=== PATIENT | female | born 1960 | race African-American/Black ===

== ENCOUNTER 2022-06-28 02:07 | Inpatient (IN) | payer MEDICAID, MEDICARE ==
[~2022-06-28] VITALS: Ht 162.6 cm; Wt 101.7 kg
[~2022-06-28 02:07] MED LIST: AMLO10TA80 MT; ASPI-1497 MT; CARV6.2548 MT; DYR5 PO; ERGO2000 PO; ERTU15TA PO; FERR325T6 MT; FLUT1BLS3 INH; FURO20TA4 MT; GABA-529 MT; INSU100I24 SQ; LEVO25TA7 MT; LOSA25TA26 MT; PRED10TA MT; SILD20TA MT; [UNRECOGNIZED DRUG - OTHER]
[2022-06-28] MEDS ORDERED: IPRATROPIUM BROMIDE (0.02%) 0.5MG/2.5ML NEB HHN STA (02:17)
[2022-06-28] MEDS ORDERED: ALBUTEROL (0.083%) 2.5MG/3ML NEB HHN STA (02:17)
[2022-06-28] MEDS ORDERED: FUROSEMIDE 40MG/4ML VIAL IV ONE (02:30)
[2022-06-28 03:13] LABS: HEMATOCRIT. 41.9 % (36.0-48.0); HEMOGLOBIN. 13.5 g/dL (12.0-16.0); MEAN CORPUSCULAR HEMOGLOBIN 27.9 pg (28.0-32.0); MEAN CORPUSCULAR VOLUME 87.1 fL (81.0-99.0); MEAN PLATELET VOLUME 8.8 fl (7.4-10.4); PLATELET 291 x1000/uL (130-400); RED BLOOD CELL COUNT 4.82 mill/uL (4.2-5.4); RED CELL DISTRIBUTION WIDTH 17.6 % (11.6-14.6)
[2022-06-28 03:21] LABS: CHLORIDE 103 mEq/L (98-107)
[2022-06-28 04:01] LABS: PLATELET ESTIMATE NORMAL
[2022-06-28 11:47] LABS: BG BASE EXCESS 6.5 mmol/L (-2.0-2.0); BG CARBOXYHEMOGLOBIN 0.8 % (0.5-1.5); BG DEOXYHEMOGLOBIN 5.5 % (0.0-5.0); BG FRACTION INSPIRED OXYGEN 40; BG HCO3 ACT 33.1 mmol/L (22.0-26.0); BG METHEMOGLOBIN 0.2 % (0.0-1.5); BG OXYGEN SATURATION 94.4 % (92.0-98.5); BG OXYHEMOGLOBIN 93.5 % (94.0-97.0); BG PCO2 56.4 mmHg (35.0-45.0); BG PH 7.387 (7.350-7.450); BG PO2 78.3 mmHg (75.0-100.0); BG TOTAL HEMOGLOBIN 13.7 g/dL (12.0-18.0); BG VENT MODE HIGH FLOW
[2022-06-28] MEDS ORDERED: ONDANSETRON HCL 4MG/2ML INJ IV PRN (14:15)
[2022-06-28] MEDS ORDERED: DEXTROSE 50% WATER 50ML SYRINGE IV PRN (14:15)
[2022-06-28] MEDS ORDERED: CLONIDINE 0.1MG TABLET PO PRN (14:15)
[2022-06-28] MEDS ORDERED: ACETAMINOPHEN 325MG TABLET PO PRN (14:15)
[2022-06-28] MEDS ORDERED: LEVOFLOXACIN 500MG PREMIX 100 ML IV SCH (14:30)
[2022-06-28] MEDS: FUROSEMIDE 40MG/4ML VIAL IVP SCH (14:41)
[2022-06-28] MEDS: BLOOD SUGAR DIAGNOSTIC STRIP TEST SCH ×2 (17:29→21:00)
[2022-06-28] MEDS: SILDENAFIL CITRATE 20MG TABLET PO SCH (17:54)
[2022-06-28] MEDS: METHYLPREDNISOLONE SOD SUCC 40 MG/ML VIAL IV SCH ×2 (17:55→22:00)
[2022-06-28] MEDS: GABAPENTIN 100MG CAPSULE PO SCH (17:55)
[2022-06-28] MEDS: INSULIN LISPRO 100 UNITS/ML SUBCUT SCH (18:10)
[2022-06-28] MEDS: CARVEDILOL 6.25 MG TABLET PO SCH (21:00)
[2022-06-28] MEDS: INSULIN GLARGINE 100 UNITS/ML SUBCUT SCH (22:00)
[2022-06-28 23:20] LABS: CREATINE KINASE 78 IU/L (26-192); CREATINE KINASE MB FRACTION < 1.0 ng/mL (0.5-3.6)
[2022-06-29 01:49] VITALS: BP 130/94
[2022-06-29 02:00] VITALS: BP 130/94
[2022-06-29 04:00] VITALS: BP 144/88
[2022-06-29] MEDS: METHYLPREDNISOLONE SOD SUCC 40 MG/ML VIAL IV SCH ×3 (05:00→21:23)
[2022-06-29 06:00] VITALS: BP 121/81
[2022-06-29 06:16] LABS: HEMATOCRIT. 41.7 % (36.0-48.0); HEMOGLOBIN. 13.3 g/dL (12.0-16.0); MEAN CORPUSCULAR VOLUME 87.3 fL (81.0-99.0); MEAN PLATELET VOLUME 8.9 fl (7.4-10.4); PLATELET 287 x1000/uL (130-400); RED BLOOD CELL COUNT 4.77 mill/uL (4.2-5.4)
[2022-06-29 06:50] LABS: CHLORIDE 100 mEq/L (98-107)
[2022-06-29 07:01] LABS: CREATINE KINASE 76 IU/L (26-192); CREATINE KINASE MB FRACTION 1.1 ng/mL (0.5-3.6)
[2022-06-29] MEDS: BLOOD SUGAR DIAGNOSTIC STRIP TEST SCH ×4 (08:11→21:00)
[2022-06-29] MEDS: GABAPENTIN 100MG CAPSULE PO SCH ×3 (08:25→17:46)
[2022-06-29] MEDS: AMLODIPINE 10MG TABLET PO SCH (08:25)
[2022-06-29] MEDS: FUROSEMIDE 40MG/4ML VIAL IVP SCH (08:26)
[2022-06-29] MEDS: LEVOTHYROXINE SODIUM 25MCG TABLET PO SCH (08:26)
[2022-06-29] MEDS: ASPIRIN 81MG EC TABLET PO SCH (08:26)
[2022-06-29] MEDS: SILDENAFIL CITRATE 20MG TABLET PO SCH ×3 (08:26→17:46)
[2022-06-29] MEDS: LOSARTAN POTASSIUM 25 MG TABLET PO SCH (08:26)
[2022-06-29] MEDS: INSULIN LISPRO 100 UNITS/ML SUBCUT SCH ×4 (08:29→21:24)
[2022-06-29] MEDS: APIXABAN 5 MG TABLET PO SCH ×2 (09:00→17:46)
[2022-06-29] MEDS ORDERED: TRIAMTERENE 50MG CAPSULE PO SCH (09:00)
[2022-06-29 09:31] LABS: BG BASE EXCESS 6.9 mmol/L (-2.0-2.0); BG CARBOXYHEMOGLOBIN 0.9 % (0.5-1.5); BG DEOXYHEMOGLOBIN 14.3 % (0.0-5.0); BG FRACTION INSPIRED OXYGEN 44; BG HCO3 ACT 33.3 mmol/L (22.0-26.0); BG METHEMOGLOBIN 0.2 % (0.0-1.5); BG OXYGEN SATURATION 85.5 % (92.0-98.5); BG OXYHEMOGLOBIN 84.6 % (94.0-97.0); BG PCO2 54.5 mmHg (35.0-45.0); BG PH 7.404 (7.350-7.450); BG PO2 50.3 mmHg (75.0-100.0); BG SAMPLE SITE RIGHT RADIAL; BG TOTAL HEMOGLOBIN 14.6 g/dL (12.0-18.0); BG VENT MODE NASAL CANNULA
[2022-06-29] MEDS: INSULIN GLARGINE 100 UNITS/ML SUBCUT SCH ×2 (10:39→21:25)
[2022-06-29 11:24] LABS: PLATELET ESTIMATE NORMAL
[2022-06-29] MEDS ORDERED: LEVOFLOXACIN 250MG PREMIX 50 ML IV SCH (15:00)
[2022-06-29 20:00] VITALS: BP 113/70
[2022-06-29] MEDS ORDERED: FURO40TA5 PO (20:16)
[2022-06-29] MEDS ORDERED: INSU100I24 SQ ×2 (20:22)
[2022-06-29] MEDS ORDERED: INSU100I32 SQ (20:24)
[2022-06-29] MEDS ORDERED: APIX5TAB PO (20:25)
[2022-06-29] MEDS ORDERED: DILT180T11 PO (20:25)
[2022-06-29] MEDS ORDERED: PROT40 PO (20:26)
[2022-06-29] MEDS ORDERED: LIP40 PO (20:26)
[2022-06-29] MEDS ORDERED: MELO-104 PO (20:27)
[2022-06-29] MEDS ORDERED: ACET-2708 PO (20:27)
[2022-06-29] MEDS ORDERED: METO-385 PO (20:28)
[2022-06-29] MEDS ORDERED: BLOO-1113 HHN (20:29)
[2022-06-29 20:45] LABS: T4 FREE 0.81 ng/dL (0.76-1.46)
[2022-06-29] MEDS: CARVEDILOL 6.25 MG TABLET PO SCH (21:23)
[2022-06-30] VITALS (7 sets, daily range): BP systolic 103–131; BP diastolic 63–89
[2022-06-30] MEDS: METHYLPREDNISOLONE SOD SUCC 40 MG/ML VIAL IV SCH ×2 (06:07→15:09)
[2022-06-30 06:43] LABS: HEMATOCRIT. 40.9 % (36.0-48.0); MEAN CORPUSCULAR HEMOGLOBIN 27.8 pg (28.0-32.0); MEAN CORPUSCULAR VOLUME 87.4 fL (81.0-99.0); MEAN PLATELET VOLUME 9.1 fl (7.4-10.4); PLATELET 320 x1000/uL (130-400); RED BLOOD CELL COUNT 4.68 mill/uL (4.2-5.4); RED CELL DISTRIBUTION WIDTH 17.6 % (11.6-14.6)
[2022-06-30] MEDS: BLOOD SUGAR DIAGNOSTIC STRIP TEST SCH ×2 (07:30→12:26)
[2022-06-30 08:52] LABS: BG BASE EXCESS 5.9 mmol/L (-2.0-2.0); BG CARBOXYHEMOGLOBIN 1.3 % (0.5-1.5); BG DEOXYHEMOGLOBIN 8.1 % (0.0-5.0); BG FRACTION INSPIRED OXYGEN 44; BG HCO3 ACT 31.9 mmol/L (22.0-26.0); BG METHEMOGLOBIN 0.3 % (0.0-1.5); BG OXYGEN SATURATION 91.8 % (92.0-98.5); BG OXYHEMOGLOBIN 90.3 % (94.0-97.0); BG PCO2 51.4 mmHg (35.0-45.0); BG PH 7.411 (7.350-7.450); BG PO2 62.8 mmHg (75.0-100.0); BG SAMPLE SITE RIGHT RADIAL; BG TOTAL HEMOGLOBIN 14.4 g/dL (12.0-18.0); BG VENT MODE NASAL CANNULA
[2022-06-30] MEDS: FUROSEMIDE 40MG/4ML VIAL IVP SCH (09:32)
[2022-06-30] MEDS: ASPIRIN 81MG EC TABLET PO SCH (09:32)
[2022-06-30] MEDS: APIXABAN 5 MG TABLET PO SCH (09:32)
[2022-06-30] MEDS: LOSARTAN POTASSIUM 25 MG TABLET PO SCH (09:33)
[2022-06-30] MEDS: AMLODIPINE 10MG TABLET PO SCH (09:33)
[2022-06-30] MEDS: GABAPENTIN 100MG CAPSULE PO SCH ×2 (09:33→12:45)
[2022-06-30] MEDS: INSULIN GLARGINE 100 UNITS/ML SUBCUT SCH (09:48)
[2022-06-30] MEDS: SILDENAFIL CITRATE 20MG TABLET PO SCH ×2 (09:49→12:45)
[2022-06-30] MEDS: INSULIN LISPRO 100 UNITS/ML SUBCUT SCH ×2 (09:49→12:47)
[2022-06-30] MEDS: LEVOTHYROXINE SODIUM 25MCG TABLET PO SCH (09:50)
[2022-06-30] MEDS ORDERED: LEVOFLOXACIN 500MG PREMIX 100 ML IV SCH (15:00)
[2022-06-30 18:38] LABS: PLATELET ESTIMATE NORMAL
== END 2022-06-30 20:30 | disposition home or self-care (01) | DRG 140 ==
LOC: ER 02:07 → 5EST 03:55 → ENRESERV 21:09
PROVIDERS: ADMIT Internal Medicine; ATTEND Internal Medicine
PROC: 5A09357 Assistance with Respiratory Ventilation, Less than 24 Consecutive Hours, Continuous Positive Airway Pressure (ICD-10-PCS; principal; 2022-06-28)
PROC: 5A09357 Assistance with Respiratory Ventilation, Less than 24 Consecutive Hours, Continuous Positive Airway Pressure (ICD-10-PCS; 2022-06-29)
PROC: 5A09357 Assistance with Respiratory Ventilation, Less than 24 Consecutive Hours, Continuous Positive Airway Pressure (ICD-10-PCS; 2022-06-30)
DX: J44.1 Chronic obstructive pulmonary disease with (acute) exacerbation (principal); J96.20 Acute and chronic respiratory failure, unspecified whether with hypoxia or hypercapnia; I50.33 Acute on chronic diastolic (congestive) heart failure; I27.21 Secondary pulmonary arterial hypertension; I11.0 Hypertensive heart disease with heart failure; Z20.822 Contact with and (suspected) exposure to COVID-19; E11.9 Type 2 diabetes mellitus without complications; E03.9 Hypothyroidism, unspecified; Z99.81 Dependence on supplemental oxygen; Z86.711 Personal history of pulmonary embolism; Z79.899 Other long term (current) drug therapy
CPT/HCPCS: 36415; 36600; 71045; 80048; 80053; 80061; 82375; 82550; 82553; 82805; 82962; 83036; 83880; 84439; 84443; 84484; 85025; 85379; 87426; 93005; 93306; 94640; 94660; 99291; C9803; J1815; J1940; J1956; J2920

== ENCOUNTER 2022-10-18 19:33 | Emergency (ER) | payer MEDICAID, MEDICARE ==
[~2022-10-18] VITALS: Ht 165.1 cm; Wt 109.0 kg
[~2022-10-18 19:33] MED LIST changes: +ACET-2708 PO; +APIX5TAB PO; +BLOO-1113 HHN; -CARV6.2548 MT; +DILT180T11 PO; -DYR5 PO; -ERGO2000 PO; -FURO20TA4 MT; +FURO40TA5 PO; -GABA-529 MT; +INSU100I32 SQ; +LIP40 PO; -LOSA25TA26 MT; +MELO-104 PO; +METO-385 PO; +PROT40 PO; -[UNRECOGNIZED DRUG - OTHER]
[2022-10-18] MEDS ORDERED: PREDNISONE 20MG TABLET PO STA (19:56)
[2022-10-18] MEDS ORDERED: IPRATROPIUM BROMIDE (0.02%) 0.5MG/2.5ML NEB HHN STA (19:56)
[2022-10-18] MEDS ORDERED: ALBUTEROL (0.083%) 2.5MG/3ML NEB HHN STA (19:56)
[2022-10-18 22:33] LABS: HEMATOCRIT. 44.1 % (36.0-48.0); MEAN CORPUSCULAR HEMOGLOBIN 28.4 pg (28.0-32.0); MEAN CORPUSCULAR VOLUME 89.4 fL (81.0-99.0); MEAN PLATELET VOLUME 9.5 fl (7.4-10.4); PLATELET 309 x1000/uL (130-400); RED BLOOD CELL COUNT 4.94 mill/uL (4.2-5.4); RED CELL DISTRIBUTION WIDTH 17.2 % (11.6-14.6)
[2022-10-18 22:44] LABS: CHLORIDE 100 mEq/L (98-107)
[2022-10-18] MEDS: IPRATROPIUM BROMIDE (0.02%) 0.5MG/2.5ML NEB HHN NR (23:00)
[2022-10-18] MEDS: ALBUTEROL (0.083%) 2.5MG/3ML NEB HHN NR (23:00)
[2022-10-18 23:03] LABS: PLATELET ESTIMATE NORMAL
[2022-10-18] MEDS ORDERED: PREDNISONE 20MG TABLET PO NR (23:45)
[2022-10-19] MEDS: ALBUTEROL (0.083%) 2.5MG/3ML NEB HHN NR (02:45)
[2022-10-19] MEDS: IPRATROPIUM BROMIDE (0.02%) 0.5MG/2.5ML NEB HHN NR (02:45)
[2022-10-19] MEDS ORDERED: INSULIN REGULAR (HUMULIN R) 300UNITS/3ML VIAL SUBCUT ONE (03:45)
[2022-10-19 10:49] VITALS: BP 146/86
== END 2022-10-19 10:45 | disposition home or self-care (01) ==
LOC: ER 19:33
DX: J44.1 Chronic obstructive pulmonary disease with (acute) exacerbation (principal); R09.02 Hypoxemia; U07.1 COVID-19; R91.8 Other nonspecific abnormal finding of lung field; I11.9 Hypertensive heart disease without heart failure; E11.9 Type 2 diabetes mellitus without complications; Z99.81 Dependence on supplemental oxygen; Z79.84 Long term (current) use of oral hypoglycemic drugs; Z79.899 Other long term (current) drug therapy
CPT/HCPCS: 36415; 71045; 80053; 82962; 83880; 85025; 93005; 94640; 96372; 99285; J1815; J7512; Z7610

== ENCOUNTER 2023-06-02 16:39 | Inpatient (IN) | payer BC, MEDICAID ==
[~2023-06-02] VITALS: Ht 160 cm; Wt 100.5 kg
[2023-06-02 16:43] VITALS: RESP 28
[2023-06-02] MEDS ORDERED: NITROGLYCERIN 0.1MG/HR PATCH TOP ONE (17:15)
[2023-06-02 17:28] LABS: BASOPHILS % 0.2 % (0.0-2.0); EOSINOPHILS % 0.5 % (0.0-5.0); HEMATOCRIT. 35.8 % (36.0-48.0); LYMPHOCYTES % 10.5 % (20.0-50.0); MEAN CORPUSCULAR HEMOGLOBIN 24.6 pg (28.0-32.0); MEAN CORPUSCULAR VOLUME 79.9 fL (81.0-99.0); MEAN PLATELET VOLUME 9.8 fl (7.4-10.4); MONOCYTES % 5.9 % (2.0-8.0); NEUTROPHILS % 82.9 % (40.0-76.0); PLATELET 243 x1000/uL (130-400); RED BLOOD CELL COUNT 4.48 mill/uL (4.2-5.4); RED CELL DISTRIBUTION WIDTH 19.5 % (11.6-14.6)
[2023-06-02 17:36] LABS: CHLORIDE 107 mEq/L (98-107)
[2023-06-02 17:41] LABS: BG BASE EXCESS 3.5 mmol/L (-2.0-2.0); BG CARBOXYHEMOGLOBIN 0.1 % (0.5-1.5); BG DEOXYHEMOGLOBIN 0.3 % (0.0-5.0); BG FRACTION INSPIRED OXYGEN 100; BG HCO3 ACT 30.4 mmol/L (22.0-26.0); BG METHEMOGLOBIN 0.5 % (0.0-1.5); BG OXYGEN SATURATION 99.7 % (92.0-98.5); BG OXYHEMOGLOBIN 99.1 % (94.0-97.0); BG PCO2 56.9 mmHg (35.0-45.0); BG PH 7.345 (7.350-7.450); BG PO2 433.9 mmHg (75.0-100.0); BG TOTAL HEMOGLOBIN 11.7 g/dL (12.0-18.0); BG VENT MODE MASK - BIPAP
[2023-06-02] MEDS: FUROSEMIDE 40MG/4ML VIAL IVP SCH (18:06)
[2023-06-02 19:38] VITALS: RESP 27
[2023-06-03] VITALS (18 sets, daily range): BP systolic 107–117; BP diastolic 32–98; PULSE 113–126; RESP 23–41; TEMP 98.6–98.9
[2023-06-03] MEDS: FUROSEMIDE 40MG/4ML VIAL IVP SCH ×2 (09:31→18:26)
[2023-06-03 09:45] LABS: BG CARBOXYHEMOGLOBIN 0.8 % (0.5-1.5); BG DEOXYHEMOGLOBIN 2.6 % (0.0-5.0); BG FRACTION INSPIRED OXYGEN 100; BG HCO3 ACT 33.2 mmol/L (22.0-26.0); BG METHEMOGLOBIN 0.4 % (0.0-1.5); BG OXYGEN SATURATION 97.4 % (92.0-98.5); BG OXYHEMOGLOBIN 96.2 % (94.0-97.0); BG PCO2 54.1 mmHg (35.0-45.0); BG PH 7.406 (7.350-7.450); BG PO2 97.6 mmHg (75.0-100.0); BG SAMPLE SITE RIGHT RADIAL; BG TOTAL HEMOGLOBIN 12.9 g/dL (12.0-18.0); BG VENT MODE MASK - NRB
[2023-06-03] MEDS ORDERED: DEXTROSE 50% WATER 50ML SYRINGE IV PRN (11:00)
[2023-06-03] MEDS: IPRATROPIUM/ALBUTEROL 0.5-3(2.5)MG/3ML NEB HHN PRN (11:05)
[2023-06-03] MEDS ORDERED: POTASSIUM CHLORIDE 20MEQ TABLET SR PO NR (11:15)
[2023-06-03] MEDS: BLOOD SUGAR DIAGNOSTIC STRIP TEST SCH ×3 (13:06→21:00)
[2023-06-03] MEDS: INSULIN GLARGINE 100 UNITS/ML SUBCUT SCH ×2 (13:09→22:30)
[2023-06-03] MEDS: INSULIN LISPRO 100 UNITS/ML SUBCUT SCH ×3 (13:10→22:32)
[2023-06-03] MEDS ORDERED: INSULIN LISPRO 100 UNITS/ML SUBCUT NR (13:15)
[2023-06-03] MEDS: IPRATROPIUM/ALBUTEROL 0.5-3(2.5)MG/3ML NEB HHN SCH ×2 (14:02→20:05)
[2023-06-03] MEDS: BUDESONIDE 0.5MG/2ML NEB HHN SCH ×2 (14:02→20:05)
[2023-06-03] MEDS ORDERED: ENOXAPARIN 100MG/ML SYR SUBCUT NR (15:00)
[2023-06-03 17:22] LABS: HEMATOCRIT 35.2 % (36.0-48.0); HEMOGLOBIN 10.9 g/dL (12.0-16.0); MEAN CORPUSCULAR HEMOGLOBIN 25.2 pg (28.0-32.0); MEAN CORPUSCULAR VOLUME 81.1 fL (81.0-99.0); PLATELET 231 x1000/uL (130-400); RED BLOOD CELL COUNT 4.35 mill/uL (4.2-5.4); RED CELL DISTRIBUTION WIDTH 19.7 % (11.6-14.6)
[2023-06-03] MEDS: ENOXAPARIN 30MG/0.3ML SYR SUBCUT SCH (18:24)
[2023-06-03 21:24] LABS: PROTHROMBIN TIME 10.9 sec (9.6-11.0)
[2023-06-03] MEDS ORDERED: NALOXONE HCL 0.4MG/ML VIAL IV PRN (22:30)
[2023-06-03] MEDS: ZOLPIDEM TARTRATE 5MG TABLET PO PRN (22:40)
[2023-06-03] MEDS: HYDROCODONE/ACETAMINOPHEN 10/325MG TABLET PO PRN (22:40)
[2023-06-04] VITALS (15 sets, daily range): BP systolic 88–116; BP diastolic 60–77; PULSE 116–123; RESP 17–38; TEMP 96.7–98.8
[2023-06-04] MEDS: IPRATROPIUM/ALBUTEROL 0.5-3(2.5)MG/3ML NEB HHN SCH ×4 (02:02→20:41)
[2023-06-04] MEDS: HYDROCODONE/ACETAMINOPHEN 10/325MG TABLET PO PRN ×5 (03:03→23:46)
[2023-06-04] MEDS: ENOXAPARIN 30MG/0.3ML SYR SUBCUT SCH ×2 (06:12→17:38)
[2023-06-04] MEDS: INSULIN LISPRO 100 UNITS/ML SUBCUT SCH ×4 (08:00→21:28)
[2023-06-04] MEDS: BLOOD SUGAR DIAGNOSTIC STRIP TEST SCH ×4 (08:14→20:46)
[2023-06-04] MEDS: BUDESONIDE 0.5MG/2ML NEB HHN SCH ×2 (08:16→20:41)
[2023-06-04] MEDS: FUROSEMIDE 40MG/4ML VIAL IVP SCH ×2 (10:14→17:38)
[2023-06-04] MEDS: INSULIN GLARGINE 100 UNITS/ML SUBCUT SCH ×2 (10:15→21:30)
[2023-06-04] MEDS: GABAPENTIN 400MG CAPSULE PO SCH ×2 (13:12→21:28)
[2023-06-04] MEDS: IPRATROPIUM/ALBUTEROL 0.5-3(2.5)MG/3ML NEB HHN PRN (14:38)
[2023-06-04] MEDS: ZOLPIDEM TARTRATE 5MG TABLET PO PRN (21:33)
[2023-06-05] VITALS (22 sets, daily range): BP systolic 86–132; BP diastolic 49–90; PULSE 104–121; RESP 17–42; TEMP 97.5–98.4
[2023-06-05] MEDS: IPRATROPIUM/ALBUTEROL 0.5-3(2.5)MG/3ML NEB HHN SCH ×6 (00:39→22:02)
[2023-06-05] MEDS: GABAPENTIN 400MG CAPSULE PO SCH ×3 (05:10→21:51)
[2023-06-05] MEDS: ENOXAPARIN 30MG/0.3ML SYR SUBCUT SCH ×2 (05:11→18:32)
[2023-06-05] MEDS: BLOOD SUGAR DIAGNOSTIC STRIP TEST SCH ×4 (07:18→22:00)
[2023-06-05] MEDS: INSULIN LISPRO 100 UNITS/ML SUBCUT SCH ×4 (07:26→22:06)
[2023-06-05] MEDS: BUDESONIDE 0.5MG/2ML NEB HHN SCH ×2 (08:15→22:03)
[2023-06-05 08:56] LABS: BG CARBOXYHEMOGLOBIN 0.5 % (0.5-1.5); BG DEOXYHEMOGLOBIN 2.8 % (0.0-5.0); BG FRACTION INSPIRED OXYGEN 60; BG HCO3 ACT 28.4 mmol/L (22.0-26.0); BG METHEMOGLOBIN 0.3 % (0.0-1.5); BG OXYGEN SATURATION 97.2 % (92.0-98.5); BG OXYHEMOGLOBIN 96.4 % (94.0-97.0); BG PH 7.347 (7.350-7.450); BG PO2 97.5 mmHg (75.0-100.0); BG SAMPLE SITE RIGHT RADIAL; BG TOTAL HEMOGLOBIN 11.5 g/dL (12.0-18.0); BG VENT MODE MASK - BIPAP
[2023-06-05] MEDS ORDERED: LEVOFLOXACIN 750MG PREMIX 150 ML IV SCH (09:30)
[2023-06-05] MEDS: CEFTRIAXONE 1,000 MG in DEXTROSE 5% WATER 50 ML IV SCH (10:24)
[2023-06-05] MEDS: GUAIFENESIN 600MG ER TABLET PO SCH ×2 (10:25→21:50)
[2023-06-05] MEDS: FUROSEMIDE 40MG/4ML VIAL IVP SCH ×2 (10:26→16:47)
[2023-06-05] MEDS: INSULIN GLARGINE 100 UNITS/ML SUBCUT SCH ×2 (10:32→22:05)
[2023-06-05] MEDS: HYDROCODONE/ACETAMINOPHEN 10/325MG TABLET PO PRN ×2 (10:34→21:57)
[2023-06-05] MEDS ORDERED: LIDOCAINE 5% PATCH TOP SCH (11:00)
[2023-06-05 11:21] LABS: HEMATOCRIT. 32.6 % (36.0-48.0); HEMOGLOBIN. 10.3 g/dL (12.0-16.0); MEAN CORPUSCULAR HEMOGLOBIN 25.4 pg (28.0-32.0); MEAN CORPUSCULAR VOLUME 80.4 fL (81.0-99.0); MEAN PLATELET VOLUME 9.9 fl (7.4-10.4); PLATELET 209 x1000/uL (130-400); RED BLOOD CELL COUNT 4.06 mill/uL (4.2-5.4); RED CELL DISTRIBUTION WIDTH 19.7 % (11.6-14.6)
[2023-06-05 12:23] LABS: PLATELET ESTIMATE NORMAL
[2023-06-06] VITALS (21 sets, daily range): BP systolic 97–128; BP diastolic 43–91; PULSE 113–121; RESP 18–42; TEMP 97.5–98.2
[2023-06-06] MEDS: IPRATROPIUM/ALBUTEROL 0.5-3(2.5)MG/3ML NEB HHN SCH ×6 (01:44→21:07)
[2023-06-06] MEDS: HYDROCODONE/ACETAMINOPHEN 10/325MG TABLET PO PRN ×2 (04:52→18:04)
[2023-06-06] MEDS: GABAPENTIN 400MG CAPSULE PO SCH ×3 (05:10→22:02)
[2023-06-06] MEDS: ENOXAPARIN 30MG/0.3ML SYR SUBCUT SCH ×2 (05:11→18:03)
[2023-06-06] MEDS: BLOOD SUGAR DIAGNOSTIC STRIP TEST SCH ×4 (08:21→21:00)
[2023-06-06] MEDS: CEFTRIAXONE 1,000 MG in DEXTROSE 5% WATER 50 ML IV SCH (10:40)
[2023-06-06] MEDS: FUROSEMIDE 40MG/4ML VIAL IVP SCH ×2 (10:56→18:03)
[2023-06-06] MEDS: GUAIFENESIN 600MG ER TABLET PO SCH ×2 (11:03→22:03)
[2023-06-06] MEDS: INSULIN LISPRO 100 UNITS/ML SUBCUT SCH ×4 (11:05→21:00)
[2023-06-06] MEDS: INSULIN GLARGINE 100 UNITS/ML SUBCUT SCH ×2 (11:06→22:03)
[2023-06-06] MEDS ORDERED: LIDOCAINE 5% PATCH TOP SCH (21:00)
[2023-06-06] MEDS: BUDESONIDE 0.5MG/2ML NEB HHN SCH (21:06)
[2023-06-07] VITALS (17 sets, daily range): BP systolic 87–120; BP diastolic 43–76; PULSE 111–119; RESP 23–39; TEMP 97.1–98.8
[2023-06-07] MEDS: IPRATROPIUM/ALBUTEROL 0.5-3(2.5)MG/3ML NEB HHN SCH ×3 (00:54→08:26)
[2023-06-07] MEDS: HYDROCODONE/ACETAMINOPHEN 10/325MG TABLET PO PRN (01:30)
[2023-06-07] MEDS: ENOXAPARIN 30MG/0.3ML SYR SUBCUT SCH ×2 (06:39→18:04)
[2023-06-07] MEDS: GABAPENTIN 400MG CAPSULE PO SCH ×3 (06:40→21:16)
[2023-06-07 07:29] LABS: BASOPHILS % 0.5 % (0.0-2.0); EOSINOPHILS % 1.2 % (0.0-5.0); HEMATOCRIT. 31.8 % (36.0-48.0); LYMPHOCYTES % 14.9 % (20.0-50.0); MEAN CORPUSCULAR HEMOGLOBIN 25.1 pg (28.0-32.0); MEAN CORPUSCULAR VOLUME 80.1 fL (81.0-99.0); MEAN PLATELET VOLUME 9.6 fl (7.4-10.4); MONOCYTES % 10.9 % (2.0-8.0); NEUTROPHILS % 72.5 % (40.0-76.0); PLATELET 213 x1000/uL (130-400); RED BLOOD CELL COUNT 3.97 mill/uL (4.2-5.4); RED CELL DISTRIBUTION WIDTH 20.1 % (11.6-14.6)
[2023-06-07] MEDS: BLOOD SUGAR DIAGNOSTIC STRIP TEST SCH ×4 (07:30→21:00)
[2023-06-07] MEDS: INSULIN LISPRO 100 UNITS/ML SUBCUT SCH ×4 (08:00→21:00)
[2023-06-07 09:00] LABS: BG BASE EXCESS -0.2 mmol/L (-2.0-2.0); BG CARBOXYHEMOGLOBIN 0.1 % (0.5-1.5); BG DEOXYHEMOGLOBIN 0.6 % (0.0-5.0); BG FRACTION INSPIRED OXYGEN 100; BG HCO3 ACT 26.8 mmol/L (22.0-26.0); BG METHEMOGLOBIN 0.5 % (0.0-1.5); BG OXYGEN SATURATION 99.4 % (92.0-98.5); BG OXYHEMOGLOBIN 98.8 % (94.0-97.0); BG PCO2 54.6 mmHg (35.0-45.0); BG PH 7.308 (7.350-7.450); BG PO2 207.8 mmHg (75.0-100.0); BG SAMPLE SITE RIGHT RADIAL; BG TOTAL HEMOGLOBIN 11.1 g/dL (12.0-18.0); BG VENT MODE MASK - BIPAP
[2023-06-07] MEDS: FUROSEMIDE 40MG/4ML VIAL IVP SCH ×2 (09:00→17:00)
[2023-06-07] MEDS: GUAIFENESIN 600MG ER TABLET PO SCH ×2 (09:08→21:16)
[2023-06-07] MEDS: CEFTRIAXONE 1,000 MG in DEXTROSE 5% WATER 50 ML IV SCH (09:08)
[2023-06-07] MEDS: INSULIN GLARGINE 100 UNITS/ML SUBCUT SCH ×2 (10:00→21:53)
[2023-06-07] MEDS: IPRATROPIUM BROMIDE (0.02%) 0.5MG/2.5ML NEB HHN SCH ×3 (12:00→21:03)
[2023-06-07] MEDS: LIDOCAINE 5% PATCH TOP SCH (22:46)
[2023-06-08] VITALS (18 sets, daily range): BP systolic 82–139; BP diastolic 29–80; PULSE 109–120; RESP 15–42; TEMP 97–98.5
[2023-06-08] MEDS: IPRATROPIUM BROMIDE (0.02%) 0.5MG/2.5ML NEB HHN SCH ×6 (00:21→20:50)
[2023-06-08] MEDS: GABAPENTIN 400MG CAPSULE PO SCH ×3 (05:08→21:23)
[2023-06-08] MEDS: ENOXAPARIN 30MG/0.3ML SYR SUBCUT SCH ×2 (05:08→17:03)
[2023-06-08] MEDS: BLOOD SUGAR DIAGNOSTIC STRIP TEST SCH ×4 (07:30→21:00)
[2023-06-08] MEDS: INSULIN LISPRO 100 UNITS/ML SUBCUT SCH ×4 (08:00→21:00)
[2023-06-08 08:01] LABS: HEMATOCRIT. 31.3 % (36.0-48.0); HEMOGLOBIN. 9.8 g/dL (12.0-16.0); MEAN CORPUSCULAR HEMOGLOBIN 24.6 pg (28.0-32.0); MEAN CORPUSCULAR VOLUME 78.6 fL (81.0-99.0); MEAN PLATELET VOLUME 9.8 fl (7.4-10.4); PLATELET 230 x1000/uL (130-400); RED BLOOD CELL COUNT 3.98 mill/uL (4.2-5.4); RED CELL DISTRIBUTION WIDTH 20.1 % (11.6-14.6)
[2023-06-08 08:41] LABS: BG BASE EXCESS -0.6 mmol/L (-2.0-2.0); BG CARBOXYHEMOGLOBIN 0.3 % (0.5-1.5); BG DEOXYHEMOGLOBIN 3.3 % (0.0-5.0); BG FRACTION INSPIRED OXYGEN 75; BG HCO3 ACT 24.5 mmol/L (22.0-26.0); BG METHEMOGLOBIN 0.3 % (0.0-1.5); BG OXYGEN SATURATION 96.7 % (92.0-98.5); BG OXYHEMOGLOBIN 96.1 % (94.0-97.0); BG PH 7.383 (7.350-7.450); BG PO2 95.2 mmHg (75.0-100.0); BG SAMPLE SITE RIGHT RADIAL; BG TOTAL HEMOGLOBIN 10.4 g/dL (12.0-18.0); BG VENT MODE MASK - BIPAP
[2023-06-08] MEDS: FUROSEMIDE 40MG/4ML VIAL IVP SCH (08:51)
[2023-06-08] MEDS: GUAIFENESIN 600MG ER TABLET PO SCH ×2 (08:51→20:36)
[2023-06-08] MEDS: CEFTRIAXONE 1,000 MG in DEXTROSE 5% WATER 50 ML IV SCH (08:52)
[2023-06-08] MEDS: INSULIN GLARGINE 100 UNITS/ML SUBCUT SCH ×2 (10:41→21:22)
[2023-06-08] MEDS: MIDODRINE HCL 5MG TABLET PO SCH ×2 (12:16→17:00)
[2023-06-08] MEDS ORDERED: METHYLPREDNISOLONE SOD SUCC 40MG VIAL IV SCH (14:00)
[2023-06-08 14:11] LABS: NUCLEATED RED BLOOD CELLS 2 /100 WBC
[2023-06-08 14:12] LABS: PLATELET ESTIMATE NORMAL
[2023-06-08] MEDS: HYDROCODONE/ACETAMINOPHEN 10/325MG TABLET PO PRN (17:04)
[2023-06-08] MEDS: LIDOCAINE 5% PATCH TOP SCH (20:35)
[2023-06-09] VITALS (42 sets, daily range): BP systolic 56–177; BP diastolic 38–102; PULSE 48–150; RESP 13–181; TEMP 96.8–97.9; O2SAT 49
[2023-06-09] MEDS: IPRATROPIUM BROMIDE (0.02%) 0.5MG/2.5ML NEB HHN SCH ×4 (00:43→12:55)
[2023-06-09] MEDS: ENOXAPARIN 30MG/0.3ML SYR SUBCUT SCH (05:11)
[2023-06-09] MEDS: GABAPENTIN 400MG CAPSULE PO SCH ×2 (05:11→13:13)
[2023-06-09] MEDS: BLOOD SUGAR DIAGNOSTIC STRIP TEST SCH ×2 (07:30→13:08)
[2023-06-09] MEDS: GUAIFENESIN 600MG ER TABLET PO SCH (08:36)
[2023-06-09] MEDS: MIDODRINE HCL 5MG TABLET PO SCH (08:38)
[2023-06-09] MEDS: INSULIN LISPRO 100 UNITS/ML SUBCUT SCH ×2 (08:40→13:08)
[2023-06-09] MEDS: CEFTRIAXONE 1,000 MG in DEXTROSE 5% WATER 50 ML IV SCH (08:41)
[2023-06-09] MEDS: INSULIN GLARGINE 100 UNITS/ML SUBCUT SCH (10:00)
[2023-06-09 13:03] LABS: BG BASE EXCESS -7.7 mmol/L (-2.0-2.0); BG CARBOXYHEMOGLOBIN 0.3 % (0.5-1.5); BG DEOXYHEMOGLOBIN 3.6 % (0.0-5.0); BG FRACTION INSPIRED OXYGEN 100; BG HCO3 ACT 18.3 mmol/L (22.0-26.0); BG OXYGEN SATURATION 96.4 % (92.0-98.5); BG OXYHEMOGLOBIN 96.1 % (94.0-97.0); BG PCO2 39.2 mmHg (35.0-45.0); BG PH 7.287 (7.350-7.450); BG PO2 101.5 mmHg (75.0-100.0); BG SAMPLE SITE RIGHT RADIAL; BG TOTAL HEMOGLOBIN 12.3 g/dL (12.0-18.0); BG VENT MODE MASK - BIPAP
[2023-06-09] MEDS ORDERED: DOPAMINE 400MG/250ML PREMIX 250 ML IV ONE (14:43)
[2023-06-09] MEDS ORDERED: DOPAMINE 400MG/250ML PREMIX 250 ML IV PRN (14:45)
[2023-06-09] MEDS: NOREPINEPHRINE 32 MG in DEXT 5% WATER 218 ML IV PRN ×2 (14:49→18:47)
[2023-06-09 15:01] LABS: BG BASE EXCESS -13.7 mmol/L (-2.0-2.0); BG CARBOXYHEMOGLOBIN 0.3 % (0.5-1.5); BG DEOXYHEMOGLOBIN 0.3 % (0.0-5.0); BG FRACTION INSPIRED OXYGEN 100; BG HCO3 ACT 15.4 mmol/L (22.0-26.0); BG METHEMOGLOBIN 0.6 % (0.0-1.5); BG OXYGEN SATURATION 99.7 % (92.0-98.5); BG OXYHEMOGLOBIN 98.8 % (94.0-97.0); BG PCO2 49.4 mmHg (35.0-45.0); BG PH 7.112 (7.350-7.450); BG PO2 251.1 mmHg (75.0-100.0); BG SAMPLE SITE RIGHT BRACHIAL; BG VENT MODE VENT - AC
[2023-06-09] MEDS ORDERED: MIDAZOLAM HCL 2 MG/2 ML VIAL IV NR (15:45)
[2023-06-09] MEDS ORDERED: SODIUM BICARBONATE 8.4% 1 MEQ/ML 50ML SYR IV NR ×2 (15:45→18:45)
[2023-06-09] MEDS ORDERED: IPRATROPIUM/ALBUTEROL 0.5-3(2.5)MG/3ML NEB HHN SCH (16:00)
[2023-06-09] MEDS ORDERED: MIDAZOLAM HCL 100 MG in SODIUM CHLORIDE 0.9% 80 ML IV PRN (16:00)
[2023-06-09] MEDS ORDERED: PHENYLEPHRINE 100 MG in DEXT 5% WATER 240 ML IV PRN (16:30)
[2023-06-09] MEDS ORDERED: EPINEPHRINE 10 MG in SODIUM CHLORIDE 0.9% 240 ML IV PRN (16:30)
[2023-06-09 18:12] LABS: HEMOGLOBIN. 11.2 g/dL (12.0-16.0); MEAN CORPUSCULAR HEMOGLOBIN 24.3 pg (28.0-32.0); MEAN CORPUSCULAR VOLUME 88.7 fL (81.0-99.0); MEAN PLATELET VOLUME 10.2 fl (7.4-10.4); PLATELET 219 x1000/uL (130-400); RED BLOOD CELL COUNT 4.62 mill/uL (4.2-5.4); RED CELL DISTRIBUTION WIDTH 22.1 % (11.6-14.6)
[2023-06-09 18:31] LABS: BG BASE EXCESS -17.8 mmol/L (-2.0-2.0); BG CARBOXYHEMOGLOBIN 0.3 % (0.5-1.5); BG DEOXYHEMOGLOBIN 13.6 % (0.0-5.0); BG FRACTION INSPIRED OXYGEN 100; BG METHEMOGLOBIN 0.6 % (0.0-1.5); BG OXYGEN SATURATION 86.3 % (92.0-98.5); BG OXYHEMOGLOBIN 85.5 % (94.0-97.0); BG PCO2 43.9 mmHg (35.0-45.0); BG PH 7.055 (7.350-7.450); BG PO2 76.7 mmHg (75.0-100.0); BG SAMPLE SITE RIGHT RADIAL; BG VENT MODE VENT - AC
[2023-06-09 18:58] LABS: NUCLEATED RED BLOOD CELLS 11 /100 WBC; PLATELET ESTIMATE NORMAL
[2023-06-09] MEDS ORDERED: FAMOTIDINE 20MG/2ML VIAL IV SCH (21:00)
[2023-06-09] MEDS ORDERED: SERTRALINE HCL 25MG TABLET PO SCH (21:30)
== END 2023-06-09 22:08 | DRG 208 ==
LOC: ER 16:39 → EDBEDREQ 23:54 → EDBEDREQTM 23:54 → 5EST 06-03 08:32 → MICUNO 06-09 14:00
PROVIDERS: ADMIT Internal Medicine; ATTEND Internal Medicine
PROC: 5A09357 Assistance with Respiratory Ventilation, Less than 24 Consecutive Hours, Continuous Positive Airway Pressure (ICD-10-PCS; 2023-06-02)
PROC: 5A1935Z Respiratory Ventilation, Less than 24 Consecutive Hours (ICD-10-PCS; principal; 2023-06-09)
PROC: 5A12012 Performance of Cardiac Output, Single, Manual (ICD-10-PCS; 2023-06-09)
PROC: 02HV33Z Insertion of Infusion Device into Superior Vena Cava, Percutaneous Approach (ICD-10-PCS; 2023-06-09)
PROC: B548ZZA Ultrasonography of Superior Vena Cava, Guidance (ICD-10-PCS; 2023-06-09)
PROC: 0BH17EZ Insertion of Endotracheal Airway into Trachea, Via Natural or Artificial Opening (ICD-10-PCS; 2023-06-09)
DX: J96.20 Acute and chronic respiratory failure, unspecified whether with hypoxia or hypercapnia (principal); I50.23 Acute on chronic systolic (congestive) heart failure; E44.1 Mild protein-calorie malnutrition; J44.1 Chronic obstructive pulmonary disease with (acute) exacerbation; I11.0 Hypertensive heart disease with heart failure; E11.65 Type 2 diabetes mellitus with hyperglycemia; E87.6 Hypokalemia; E66.01 Morbid (severe) obesity due to excess calories; I48.91 Unspecified atrial fibrillation; I27.20 Pulmonary hypertension, unspecified; I07.1 Rheumatic tricuspid insufficiency; F43.23 Adjustment disorder with mixed anxiety and depressed mood; Z79.4 Long term (current) use of insulin; Z87.891 Personal history of nicotine dependence; Z79.899 Other long term (current) drug therapy; Z68.39 Body mass index [BMI] 39.0-39.9, adult
CPT/HCPCS: 36415; 36600; 71045; 80048; 80053; 82375; 82805; 82962; 83880; 85025; 85027; 85379; 92950; 93005; 93306; 93970; 94003; 94640; 94660; 99285; J0696; J1265; J1650; J1815; J1940; J2250; J2920; J3490; J7050; J7060; J7626